=== PATIENT | male | born 1970 | race Caucasian/White ===

== ENCOUNTER 2017-03-01 16:25 | Emergency (ER) | payer OTHER ==
[2017-03-01] MEDS ORDERED: LIDOCAINE 1% INJ-PF (10 MG/ML) 30 ML SDV INJ ONE (17:12)
--- NOTE | 2017-03-01 17:15 | ER Document Report ---
HPI - HPI Patient complains to provider of: cut leg on place or chills Onset: Just prior to arrival Onset/Duration: Sudden Pain Level: 1 Context: 46-year-old male whose tetanus is current, slipped while fishing and caused abrasion to left posterior ankle and 2 cuts to the posterior left lower leg. Associated Symptoms: None Exacerbated by: Denies Relieved by: Denies Similar symptoms previously: No Recently seen / treated by doctor: No - ROS ROS below otherwise negative: Yes Systems Reviewed and Negative: Yes All other systems reviewed and negative - DERM Skin Color: Normal Past Medical History - General Information source: Patient - Social History Smoking Status: Never Smoker Frequency of alcohol use: None Drug Abuse: None Lives with: Family Family History: Reviewed & Not Pertinent Patient has suicidal ideation: No Patient has homicidal ideation: No - Medical History Medical History: Negative Renal/ Medical History: Denies: Hx Peritoneal Dialysis Surgical Hx: Negative Vertical Provider Document - CONSTITUTIONAL Agree With Documented VS: Yes Exam Limitations: No Limitations - INFECTION CONTROL TRAVEL OUTSIDE OF THE [place] IN LAST 30 DAYS: No - HEENT HEENT: Normocephalic - NECK Neck: Supple - RESPIRATORY O2 Sat by Pulse Oximetry: 96 - MUSCULOSKELETAL/EXTREMETIES Musculoskeletal/Extremeties: MAEW, FROM, Tender - NEURO Level of Consciousness: Awake, Alert Motor/Sensory: No Motor Deficit, No Sensory Deficit - DERM Integumentary: Laceration - See procedure Course - Vital Signs Vital signs: Temp Pulse Resp BP Pulse Ox 98.5 F 85 19 143/89 H 96 03/01/17 16:34 03/01/17 16:34 03/01/17 16:34 03/01/17 16:34 03/01/17 16:34 Procedures - Laceration/Wound Repair Right Leg Time completed: 18:23 Wound length (cm): 5 - partial thickness post calf, #2 cut 1.5 cm full thickness , post mid calf Wound's Depth, Shape: Linear. No: Into muscle Laceration pre-procedure: Sterile drapes applied, Other Anesthetic type: 1% Lidocaine Volume Anesthetic (mLs): 20 Wound explored: Clean Irrigated w/ Saline (mLs): 200 Wound Repaired With: Sutures Suture Size/Type: 4:0, Prolene Number of Sutures: 8 - vertical mattress Post-procedure wound care: Sterile dressing applied - bacitracin Post-procedure NV exam normal: Yes Complications: No Discharge - Discharge Clinical Impression: 2 laceration repairs Condition: Good Disposition: HOME, SELF-CARE Instructions: Antibiotic Ointment Protection ([facility]), Prophylactic Antibiotic ( [facility]), Laceration Care ([facility]), Soap Cleansing ([facility]), Doxycycline ([facility]) Additional Instructions: keep the dressing on for 2 days, then wash with soap and water, bacitracin, dressing, keep clean and dry to er any signs of infection your tetanus shot is current sutures out in 12 days in [place] Please complete the patient satisfaction survey if you get one, and return it.. If you do not receive a survey, then you can go to the [facility] website, [email or web address] and place your comments about your very good care. Thank you very much. It was a pleasure being your medical provider today. Prescriptions: Doxycycline Hyclate 100 mg PO BID #14 capsule Oxycodone HCl/Acetaminophen [Percocet 5-325 mg Tablet] 1 - 2 tab PO ASDIR PRN # 15 tablet PRN Reason:
[2017-03-01] MEDS ORDERED: LIDOCAINE 1% INJ-PF (10 MG/ML) 30 ML SDV ONE (17:50)
[2017-03-01] MEDS ORDERED: DOXYCYCLINE HYCLATE 100 MG TABLET PO ONE (18:31)
[2017-03-01 18:45] VITALS: BP 128/85
== END 2017-03-01 18:45 | disposition home or self-care (01) ==
LOC: ER 16:25
PROC: 0HQKXZZ Repair Right Lower Leg Skin, External Approach (ICD-10-PCS; principal; 2017-03-01)
DX: S81.811A Laceration without foreign body, right lower leg, initial encounter (principal); W01.0XXA Fall on same level from slipping, tripping and stumbling without subsequent striking against object, initial encounter
CPT/HCPCS: 99282